=== PATIENT | male | born 1955 | race Caucasian/White ===

== ENCOUNTER 2022-10-05 11:00 | Emergency (ER) | payer MEDICARE ==
[~2022-10-05] VITALS: Ht 175.3 cm; Wt 83.2 kg
[2022-10-05] MEDS ORDERED: QUET50TA67 PO (11:23)
[2022-10-05] MEDS ORDERED: AMLO1TAB25 PO (12:19)
[2022-10-05] MEDS ORDERED: HYDR-3910 PO (12:19)
[2022-10-05] MEDS ORDERED: FLON1SPR NARES (12:19)
[2022-10-05] MEDS ORDERED: BUSP10TA PO (12:19)
[2022-10-05] MEDS ORDERED: LISI10TA22 PO (12:19)
[2022-10-05] MEDS ORDERED: PRAZ1CAP PO (12:19)
[2022-10-05] MEDS ORDERED: CLON-412 PO (12:19)
[2022-10-05] MEDS ORDERED: ACAM0.05 PO (12:19)
[2022-10-05] MEDS ORDERED: OXAZEPAM 15MG CAP PO ONE (12:40)
[2022-10-05] MEDS ORDERED: cloNIDine 0.1MG TABLET PO ONE (12:40)
[2022-10-05] MEDS ORDERED: **hydrALAZINE HCL** 25 MG TAB PO ONE (12:40)
[2022-10-05 12:50] LABS: HEMATOCRIT 44.9 % (42.0-52.0); HEMOGLOBIN 15.8 g/dl (13.5-17.5); MEAN CORPUSCULAR HEMOGLOBIN 30.9 pg (27.0-33.0); MEAN CORPUSCULAR HGB CONC 35.2 g/dl (32.0-36.5); MEAN CORPUSCULAR VOLUME 87.7 fl (80.0-96.0); PLATELET COUNT, AUTOMATED 329 10^3/uL (150-450); RED BLOOD COUNT 5.12 10^6/uL (4.30-6.10); WHITE BLOOD COUNT 6.7 10^3/uL (4.0-10.0)
[2022-10-05 12:55] VITALS: BP 200/106
[2022-10-05 13:12] LABS: AMPHETAMINES LEVEL URINE NEGATIVE (NEGATIVE); BARBITURATES URINE NEGATIVE (NEGATIVE); BENZODIAZEPINES URINE NEGATIVE (NEGATIVE); CANNABINOIDS URINE NEGATIVE (NEGATIVE); COCAINE METABOLITE URINE NEGATIVE (NEGATIVE); METHADONE URINE NEGATIVE (NEGATIVE); OPIATES URINE NEGATIVE (NEGATIVE); PHENCYCLIDINE URINE NEGATIVE (NEGATIVE)
[2022-10-05 13:15] LABS: ETHYL ALCOHOL (ETHANOL) 0.121 % (0.000-0.010)
[2022-10-05 13:16] LABS: SALICYLATE LEVEL < 3.0 MG/DL (<30)
[2022-10-05 13:17] LABS: ACETAMINOPHEN LEVEL < 2.0 UG/ML (10.0-20.0); ALBUMIN 4.3 G/DL (3.2-5.2); ALKALINE PHOSPHATASE 83 U/L (46-116); ALT/SGPT 33 U/L (7.0-40); AST/SGOT 33 U/L (<34); BILIRUBIN,DIRECT 0.2 MG/DL (<0.4); BILIRUBIN,TOTAL 0.5 MG/DL (0.3-1.2); BLOOD UREA NITROGEN 8 MG/DL (9-23); CARBON DIOXIDE LEVEL 26 MMOL/L (20-31); CHLORIDE LEVEL 90 MMOL/L (98-107); CREATININE FOR GFR 0.92 MG/DL (0.70-1.30); GLOMERULAR FILTRATION RATE > 60.0 (>49); GLUCOSE, FASTING 94 MG/DL (74-106); POTASSIUM SERUM 5.2 MMOL/L (3.5-5.1); SODIUM LEVEL 123 MMOL/L (136-145); TOTAL PROTEIN 8.3 G/DL (5.7-8.2)
[2022-10-05 13:18] LABS: THYROID STIMULATING HORMONE 2.498 uIU/ML (0.55-4.78)
[2022-10-05] MEDS ORDERED: OLANZapine ORAL DISINTEGRATING TAB 5MG PO PRN (20:10)
[2022-10-05] MEDS ORDERED: traZODone 50 MG TAB PO PRN (20:10)
[2022-10-05] MEDS ORDERED: MAALOX 30 ML SUSP *UDC PO PRN (20:10)
[2022-10-05] MEDS ORDERED: MOM 30ML SUSPENSION UDC PO PRN (20:10)
[2022-10-05] MEDS ORDERED: ACETAMINOPHEN TAB 650MG DOSE (2X325MG) PO PRN (20:10)
[2022-10-05] MEDS ORDERED: THIAMINE 100 MG TAB PO SCH (21:00)
[2022-10-05] MEDS ORDERED: LORazepam 2 MG TAB PO PRN (21:05)
[2022-10-05 21:38] VITALS: BP 140/82
[2022-10-05] MEDS ORDERED: NS 1,000 ML IV ONE (23:25)
[2022-10-06 02:57] LABS: BLOOD UREA NITROGEN 13 MG/DL (9-23); CALCIUM LEVEL 8.3 MG/DL (8.3-10.6); CARBON DIOXIDE LEVEL 25 MMOL/L (20-31); CHLORIDE LEVEL 96 MMOL/L (98-107); CREATININE FOR GFR 0.99 MG/DL (0.70-1.30); GLOMERULAR FILTRATION RATE > 60.0 (>49); GLUCOSE, FASTING 92 MG/DL (74-106); POTASSIUM SERUM 4.7 MMOL/L (3.5-5.1); SODIUM LEVEL 128 MMOL/L (136-145)
[2022-10-06] MEDS ORDERED: ONDANSETRON 4MG 2ML VIAL IV PRN (04:15)
[2022-10-06] MEDS ORDERED: OXAZEPAM 15MG CAP PO SCH (05:00)
[2022-10-06] MEDS ORDERED: FOLIC ACID 1MG TAB PO SCH (09:00)
[2022-10-06] MEDS ORDERED: MULTIVITAMINS/MINERALS THERAP 1 TAB PO SCH (09:00)
[2022-10-06] MEDS ORDERED: cloNIDine 0.1MG TABLET PO SCH (09:00)
[2022-10-06] MEDS ORDERED: QUET200T2 PO (09:36)
[2022-10-06] MEDS ORDERED: MED REC COMMENT (09:37)
[2022-10-07] MEDS ORDERED: THIA100TA PO (14:01)
[2022-10-07] MEDS ORDERED: VITMTA PO (14:01)
[2022-10-07] MEDS ORDERED: LORA2TA PO (14:01)
[2022-10-07] MEDS ORDERED: NICO2GUM PO (14:01)
[2022-10-07] MEDS ORDERED: FOLI1TAB11 PO (14:01)
== END 2022-10-06 03:09 | disposition home or self-care (01) ==
LOC: M ED 11:00 → UNDOADMIN 20:06 → M ED INP 20:06 → UNDODISIN 10-06 03:08
DX: F10.10 Alcohol abuse, uncomplicated (principal); F32.A Depression, unspecified; I10 Essential (primary) hypertension; Z91.199 Patient's noncompliance with other medical treatment and regimen due to unspecified reason; Z79.899 Other long term (current) drug therapy

== ENCOUNTER 2022-10-06 01:09 | Inpatient (IN) | payer MEDICARE ==
[2022-10-06] VITALS (11 sets, daily range): BP systolic 90–125; BP diastolic 60–90
[~2022-10-06 01:09] MED LIST: ACAM0.05 PO; AMLO1TAB25 PO; BUSP10TA PO; CLON-412 PO; FLON1SPR NARES; HYDR-3910 PO; LISI10TA22 PO; PRAZ1CAP PO; QUET50TA67 PO
[2022-10-06] MEDS: LORazepam 2 MG TAB PO PRN ×3 (03:36→20:06)
[2022-10-06] MEDS: THIAMINE 100 MG TAB PO SCH ×3 (03:37→20:06)
[2022-10-06 04:08] LABS: OSMOLALITY URINE 203 MOSM/KG (50-1400); SODIUM,RANDOM URINE 19 MMOL/L
[2022-10-06] MEDS ORDERED: ONDANSETRON 4MG 2ML VIAL IV PRN (04:55)
[2022-10-06] MEDS ORDERED: OXAZEPAM 15MG CAP PO SCH (05:00)
[2022-10-06 08:08] LABS: HEMATOCRIT 40.2 % (42.0-52.0); MEAN CORPUSCULAR HEMOGLOBIN 31.3 pg (27.0-33.0); MEAN CORPUSCULAR HGB CONC 34.8 g/dl (32.0-36.5); MEAN CORPUSCULAR VOLUME 89.7 fl (80.0-96.0); PLATELET COUNT, AUTOMATED 251 10^3/uL (150-450); RED BLOOD COUNT 4.48 10^6/uL (4.30-6.10); WHITE BLOOD COUNT 6.9 10^3/uL (4.0-10.0)
[2022-10-06 08:20] LABS: INR 1.01; PROTHROMBIN TIME 13.5 SECONDS (12.5-14.5)
[2022-10-06 08:21] LABS: PARTIAL THROMBOPLASTIN TIME 29.1 SECONDS (24.8-34.2)
[2022-10-06 08:47] LABS: ALBUMIN 3.5 G/DL (3.2-5.2); ALKALINE PHOSPHATASE 75 U/L (46-116); ALT/SGPT 21 U/L (7.0-40); AST/SGOT 24 U/L (<34); BILIRUBIN,TOTAL 1.1 MG/DL (0.3-1.2); BLOOD UREA NITROGEN 15 MG/DL (9-23); CALCIUM LEVEL 8.3 MG/DL (8.3-10.6); CARBON DIOXIDE LEVEL 25 MMOL/L (20-31); CHLORIDE LEVEL 96 MMOL/L (98-107); CREATININE FOR GFR 1.01 MG/DL (0.70-1.30); GLOMERULAR FILTRATION RATE > 60.0 (>49); GLUCOSE, FASTING 106 MG/DL (74-106); MAGNESIUM LEVEL 2.1 MG/DL (1.8-2.4); PHOSPHORUS LEVEL 3.7 MG/DL (2.4-5.1); POTASSIUM SERUM 4.5 MMOL/L (3.5-5.1); SODIUM LEVEL 127 MMOL/L (136-145); TOTAL PROTEIN 6.8 G/DL (5.7-8.2)
[2022-10-06] MEDS ORDERED: **hydrALAZINE HCL** 25 MG TAB PO SCH (09:00)
[2022-10-06] MEDS ORDERED: cloNIDine 0.1MG TABLET PO SCH (09:00)
[2022-10-06] MEDS ORDERED: QUET200T2 PO (09:36)
[2022-10-06] MEDS ORDERED: MED REC COMMENT (09:37)
[2022-10-06] MEDS ORDERED: HOME MED LIST COMPLETE! XX SCH (09:40)
[2022-10-06] MEDS: NS 1,000 ML IV SCH ×2 (09:52→20:07)
[2022-10-06] MEDS: FOLIC ACID 1MG TAB PO SCH (10:13)
[2022-10-06] MEDS: MULTIVITAMINS/MINERALS THERAP 1 TAB PO SCH (10:13)
[2022-10-06] MEDS: NICOTINE POLACRILEX 2 MG GUM PO PRN (16:39)
[2022-10-06 17:42] LABS: ALBUMIN 3.4 G/DL (3.2-5.2); ALKALINE PHOSPHATASE 78 U/L (46-116); ALT/SGPT 23 U/L (7.0-40); AST/SGOT 28 U/L (<34); BILIRUBIN,TOTAL 0.5 MG/DL (0.3-1.2); BLOOD UREA NITROGEN 18 MG/DL (9-23); CARBON DIOXIDE LEVEL 23 MMOL/L (20-31); CHLORIDE LEVEL 99 MMOL/L (98-107); CREATININE FOR GFR 1.12 MG/DL (0.70-1.30); GLOMERULAR FILTRATION RATE > 60.0 (>49); GLUCOSE, FASTING 89 MG/DL (74-106); POTASSIUM SERUM 4.9 MMOL/L (3.5-5.1); SODIUM LEVEL 128 MMOL/L (136-145); TOTAL PROTEIN 6.8 G/DL (5.7-8.2)
[2022-10-06] MEDS: OXAZEPAM 15MG CAP PO SCH (18:23)
[2022-10-06] MEDS ORDERED: LORazepam 1 MG TAB PO ONE (20:15)
[2022-10-06] MEDS ORDERED: QUEtiapine FUMARATE 50MG TAB PO ONE (20:20)
[2022-10-06] MEDS ORDERED: QUEtiapine FUMARATE 100 MG TAB PO ONE (22:20)
[2022-10-06 23:13] LABS: BLOOD UREA NITROGEN 19 MG/DL (9-23); CALCIUM LEVEL 7.9 MG/DL (8.3-10.6); CARBON DIOXIDE LEVEL 24 MMOL/L (20-31); CHLORIDE LEVEL 102 MMOL/L (98-107); CREATININE FOR GFR 1.19 MG/DL (0.70-1.30); GLOMERULAR FILTRATION RATE > 60.0 (>49); GLUCOSE, FASTING 95 MG/DL (74-106); POTASSIUM SERUM 5.1 MMOL/L (3.5-5.1); SODIUM LEVEL 131 MMOL/L (136-145)
[2022-10-07] VITALS (7 sets, daily range): BP systolic 117–181; BP diastolic 73–111
[2022-10-07] MEDS: NS 1,000 ML IV SCH ×3 (02:53→15:20)
[2022-10-07] MEDS: OXAZEPAM 15MG CAP PO SCH (06:49)
[2022-10-07] MEDS: FOLIC ACID 1MG TAB PO SCH (08:32)
[2022-10-07] MEDS: THIAMINE 100 MG TAB PO SCH (08:32)
[2022-10-07] MEDS: MULTIVITAMINS/MINERALS THERAP 1 TAB PO SCH (08:32)
[2022-10-07 09:31] LABS: HEMATOCRIT 38.1 % (42.0-52.0); HEMOGLOBIN 13.1 g/dl (13.5-17.5); MEAN CORPUSCULAR HEMOGLOBIN 31.7 pg (27.0-33.0); MEAN CORPUSCULAR HGB CONC 34.4 g/dl (32.0-36.5); MEAN CORPUSCULAR VOLUME 92.3 fl (80.0-96.0); PLATELET COUNT, AUTOMATED 241 10^3/uL (150-450); RED BLOOD COUNT 4.13 10^6/uL (4.30-6.10); WHITE BLOOD COUNT 4.7 10^3/uL (4.0-10.0)
[2022-10-07 10:25] LABS: ALBUMIN 3.2 G/DL (3.2-5.2); ALKALINE PHOSPHATASE 66 U/L (46-116); ALT/SGPT 23 U/L (7.0-40); AST/SGOT 23 U/L (<34); BILIRUBIN,TOTAL 0.5 MG/DL (0.3-1.2); BLOOD UREA NITROGEN 15 MG/DL (9-23); CARBON DIOXIDE LEVEL 22 MMOL/L (20-31); CHLORIDE LEVEL 108 MMOL/L (98-107); CREATININE FOR GFR 1.01 MG/DL (0.70-1.30); GLOMERULAR FILTRATION RATE > 60.0 (>49); GLUCOSE, FASTING 126 MG/DL (74-106); POTASSIUM SERUM 4.5 MMOL/L (3.5-5.1); SODIUM LEVEL 137 MMOL/L (136-145); TOTAL PROTEIN 6.3 G/DL (5.7-8.2)
[2022-10-07] MEDS: LORazepam 2 MG TAB PO PRN (12:27)
[2022-10-07] MEDS: NICOTINE POLACRILEX 2 MG GUM PO PRN ×2 (12:28→15:34)
[2022-10-07] MEDS ORDERED: VITMTA PO (14:01)
[2022-10-07] MEDS ORDERED: LORA2TA PO (14:01)
[2022-10-07] MEDS ORDERED: FOLI1TAB11 PO (14:01)
[2022-10-07] MEDS ORDERED: NICO2GUM PO (14:01)
[2022-10-07] MEDS ORDERED: THIA100TA PO (14:01)
[2022-10-07] MEDS ORDERED: cloNIDine 0.1MG TABLET PO PRN (14:40)
[2022-10-07] MEDS ORDERED: **hydrALAZINE HCL** 25 MG TAB PO SCH ×2 (16:30→21:00)
[2022-10-07] MEDS ORDERED: LORazepam 1 MG TAB PO ONE (17:25)
== END 2022-10-07 18:16 | DRG 641 ==
LOC: M ED INP 01:35 → M MSPAV 03:10 → OBSVTOIN 07:43
PROVIDERS: ADMIT Internal Medicine; ATTEND Internal Medicine
DX: E87.1 Hypo-osmolality and hyponatremia (principal); R45.851 Suicidal ideations; F32.A Depression, unspecified; I10 Essential (primary) hypertension; F10.20 Alcohol dependence, uncomplicated; E86.0 Dehydration; Z87.891 Personal history of nicotine dependence; Z79.899 Other long term (current) drug therapy; R45.1 Restlessness and agitation

== ENCOUNTER 2022-10-07 14:55 | Inpatient (IN) | payer MEDICARE ==
[~2022-10-07] VITALS: Ht 175.3 cm; Wt 81.1 kg
[~2022-10-07 14:55] MED LIST changes: +FOLI1TAB11 PO; +LORA2TA PO; +MED REC COMMENT; +NICO2GUM PO; +QUET200T2 PO; +THIA100TA PO; +VITMTA PO
[2022-10-07] MEDS ORDERED: traZODone 50 MG TAB PO PRN (16:20)
[2022-10-07] MEDS ORDERED: MAALOX 30 ML SUSP *UDC PO PRN (16:20)
[2022-10-07] MEDS ORDERED: ACETAMINOPHEN TAB 650MG DOSE (2X325MG) PO PRN (16:20)
[2022-10-07] MEDS ORDERED: MOM 30ML SUSPENSION UDC PO PRN (16:20)
[2022-10-07] MEDS ORDERED: LORazepam 2 MG TAB PO PRN (16:20)
[2022-10-07] MEDS ORDERED: cloNIDine 0.1MG TABLET PO PRN (18:10)
[2022-10-07 18:29] VITALS: BP 127/97
[2022-10-07 18:31] VITALS: BP 127/97
[2022-10-07 19:00] VITALS: BP 127/97
[2022-10-07] MEDS: THIAMINE 100 MG TAB PO SCH (19:16)
[2022-10-07] MEDS: NICOTINE POLACRILEX 2 MG GUM PO PRN (20:01)
[2022-10-07] MEDS: QUEtiapine FUMARATE 100 MG TAB PO SCH (20:22)
[2022-10-07] MEDS ORDERED: **hydrALAZINE HCL** 25 MG TAB PO SCH (21:00)
[2022-10-07 21:19] VITALS: BP 173/97
[2022-10-08 08:00] VITALS: BP 162/93
[2022-10-08] MEDS ORDERED: FOLIC ACID 1MG TAB PO SCH (09:00)
[2022-10-08] MEDS: NICOTINE 7 MG/24 HR TRANSDERMAL TD SCH (09:00)
[2022-10-08] MEDS ORDERED: MULTIVITAMINS/MINERALS THERAP 1 TAB PO SCH (09:00)
[2022-10-08 09:17] VITALS: BP 136/76
[2022-10-08] MEDS: **hydrALAZINE HCL** 25 MG TAB PO SCH ×3 (09:18→20:05)
[2022-10-08] MEDS: THIAMINE 100 MG TAB PO SCH ×2 (09:18→20:05)
[2022-10-08] MEDS: NICOTINE POLACRILEX 2 MG GUM PO PRN ×3 (09:20→18:24)
[2022-10-08] MEDS ORDERED: HOME MED LIST COMPLETE! XX SCH (11:10)
[2022-10-08] MEDS: OLANZapine ORAL DISINTEGRATING TAB 5MG PO PRN ×2 (12:34→17:44)
[2022-10-08 16:00] VITALS: BP 160/80
[2022-10-08 18:00] VITALS: BP 140/80
[2022-10-08] MEDS: QUEtiapine FUMARATE 100 MG TAB PO SCH (20:05)
[2022-10-09 06:09] VITALS: BP 149/79
[2022-10-09] MEDS: **hydrALAZINE HCL** 25 MG TAB PO SCH ×3 (08:06→20:21)
[2022-10-09] MEDS: NICOTINE 7 MG/24 HR TRANSDERMAL TD SCH (08:07)
[2022-10-09] MEDS: NICOTINE POLACRILEX 2 MG GUM PO PRN ×4 (08:08→20:27)
[2022-10-09] MEDS: OLANZapine ORAL DISINTEGRATING TAB 5MG PO PRN ×2 (11:36→20:19)
[2022-10-09] MEDS: QUEtiapine FUMARATE 100 MG TAB PO SCH (20:21)
[2022-10-10 06:15] VITALS: BP 112/73
[2022-10-10] MEDS: NICOTINE POLACRILEX 2 MG GUM PO PRN ×3 (08:13→16:42)
[2022-10-10] MEDS: OLANZapine ORAL DISINTEGRATING TAB 5MG PO PRN ×2 (08:13→15:54)
[2022-10-10] MEDS: **hydrALAZINE HCL** 25 MG TAB PO SCH ×3 (08:13→20:10)
[2022-10-10] MEDS: NICOTINE 7 MG/24 HR TRANSDERMAL TD SCH (08:14)
[2022-10-10] MEDS ORDERED: SERTRALINE HCL 50 MG TAB PO SCH (09:00)
[2022-10-10] MEDS: NALTREXONE 50 MG TAB PO SCH (11:43)
[2022-10-10] MEDS ORDERED: LORazepam 2 MG TAB PO PRN (12:15)
[2022-10-10 12:30] VITALS: BP 146/84
[2022-10-10] MEDS: MULTIVITAMINS/MINERALS THERAP 1 TAB PO SCH (12:32)
[2022-10-10] MEDS: THIAMINE 100 MG TAB PO SCH ×2 (12:32→20:10)
[2022-10-10] MEDS: FOLIC ACID 1MG TAB PO SCH (12:33)
[2022-10-10 17:48] VITALS: BP 129/77
[2022-10-10] MEDS: QUEtiapine FUMARATE 100 MG TAB PO SCH (20:08)
[2022-10-11 06:19] VITALS: BP 132/74
[2022-10-11 06:20] VITALS: BP 132/74
[2022-10-11] MEDS: NICOTINE 7 MG/24 HR TRANSDERMAL TD SCH (08:07)
[2022-10-11] MEDS: NICOTINE POLACRILEX 2 MG GUM PO PRN ×4 (08:09→20:12)
[2022-10-11] MEDS: PILL CUTTER 1 EACH XX PRN (08:09)
[2022-10-11] MEDS: FOLIC ACID 1MG TAB PO SCH (08:10)
[2022-10-11] MEDS: **hydrALAZINE HCL** 25 MG TAB PO SCH ×3 (08:10→20:10)
[2022-10-11] MEDS: THIAMINE 100 MG TAB PO SCH ×2 (08:10→20:09)
[2022-10-11] MEDS: MULTIVITAMINS/MINERALS THERAP 1 TAB PO SCH (08:10)
[2022-10-11] MEDS: NALTREXONE 50 MG TAB PO SCH (08:10)
[2022-10-11] MEDS ORDERED: ESCITALOPRAM OXALATE 5MG TABLET (LEXAPRO) PO SCH (09:00)
[2022-10-11 14:50] VITALS: BP 130/79
[2022-10-11] MEDS: hydrOXYzine 50 MG TAB PO PRN (15:42)
[2022-10-11] MEDS: QUEtiapine FUMARATE 100 MG TAB PO SCH (20:10)
[2022-10-11 23:14] VITALS: BP 127/72
[2022-10-12] MEDS: hydrOXYzine 50 MG TAB PO PRN (02:42)
[2022-10-12 06:35] VITALS: BP 119/70
[2022-10-12] MEDS: NALTREXONE 50 MG TAB PO SCH (08:18)
[2022-10-12] MEDS: ESCITALOPRAM OXALATE 10 MG TAB (LEXAPRO) PO SCH (08:18)
[2022-10-12] MEDS: MULTIVITAMINS/MINERALS THERAP 1 TAB PO SCH (08:18)
[2022-10-12] MEDS: FOLIC ACID 1MG TAB PO SCH (08:18)
[2022-10-12] MEDS: **hydrALAZINE HCL** 25 MG TAB PO SCH ×3 (08:18→19:56)
[2022-10-12] MEDS: NICOTINE POLACRILEX 2 MG GUM PO PRN ×4 (08:18→19:56)
[2022-10-12] MEDS: PILL CUTTER 1 EACH XX PRN (08:18)
[2022-10-12] MEDS: THIAMINE 100 MG TAB PO SCH (08:19)
[2022-10-12] MEDS ORDERED: busPIRone 10 MG TAB PO SCH (09:00)
[2022-10-12] MEDS: QUEtiapine FUMARATE 50MG TAB PO SCH (12:06)
[2022-10-12 15:34] VITALS: BP 131/81
[2022-10-12 17:58] VITALS: BP 131/87
[2022-10-12] MEDS ORDERED: QUEtiapine FUMARATE 200 MG TAB PO SCH (21:00)
[2022-10-13 06:33] VITALS: BP 104/63
[2022-10-13 08:15] VITALS: BP 135/77
[2022-10-13 08:17] VITALS: BP 135/77
[2022-10-13] MEDS: ESCITALOPRAM OXALATE 10 MG TAB (LEXAPRO) PO SCH (08:17)
[2022-10-13] MEDS: FOLIC ACID 1MG TAB PO SCH (08:17)
[2022-10-13] MEDS: NALTREXONE 50 MG TAB PO SCH (08:17)
[2022-10-13] MEDS: **hydrALAZINE HCL** 25 MG TAB PO SCH (08:17)
[2022-10-13] MEDS: MULTIVITAMINS/MINERALS THERAP 1 TAB PO SCH (08:17)
[2022-10-13] MEDS: PILL CUTTER 1 EACH XX PRN (08:18)
[2022-10-13] MEDS: NICOTINE POLACRILEX 2 MG GUM PO PRN ×2 (08:19→12:47)
[2022-10-13] MEDS ORDERED: QUET50TA67 PO (10:06)
[2022-10-13] MEDS ORDERED: TRAZ-252 PO (10:07)
[2022-10-13] MEDS ORDERED: HYDR-3910 PO (10:07)
[2022-10-13] MEDS ORDERED: NALT50TA4 PO (10:07)
[2022-10-13] MEDS ORDERED: LEXA1TAB PO (10:07)
[2022-10-13] MEDS ORDERED: AMLO1TAB25 PO (10:07)
[2022-10-13] MEDS ORDERED: QUET200T2 PO (10:07)
[2022-10-13] MEDS ORDERED: PRAZ1CAP PO (10:07)
[2022-10-13] MEDS: QUEtiapine FUMARATE 50MG TAB PO SCH (12:00)
== END 2022-10-13 12:57 | disposition home or self-care (01) | DRG 885 ==
LOC: M PSY 18:19
PROVIDERS: ADMIT Student in an Organized Health Care Education/Training Program; ATTEND Student in an Organized Health Care Education/Training Program
DX: F33.1 Major depressive disorder, recurrent, moderate (principal); F10.24 Alcohol dependence with alcohol-induced mood disorder; R45.851 Suicidal ideations; E87.1 Hypo-osmolality and hyponatremia; F43.10 Post-traumatic stress disorder, unspecified; Z59.00 Homelessness unspecified; Z63.8 Other specified problems related to primary support group; I10 Essential (primary) hypertension; F17.200 Nicotine dependence, unspecified, uncomplicated; Z76.5 Malingerer [conscious simulation]